=== PATIENT | male | born 1990 | race Two or more races ===

== ENCOUNTER 2016-05-11 19:31 | Emergency (ER) | payer OTHER ==
[~2016-05-11] VITALS: Ht 190.5 cm; Wt 77.1 kg
[2016-05-11 19:53] VITALS: BP 151/87
[2016-05-11] MEDS ORDERED: LORazepam Inj 2mg/ml 1ml IM ONE (20:00)
--- NOTE | 2016-05-11 20:03 | Emergency Room Report ---
History of Present Illness General Chief Complaint: Substance Abuse Source: Patient Present Illness HPI Patient reports smoking marijuana approximately 6:30 this evening Soon after the patient began having symptoms of palpitation Sensation of doom tightness in the neck Neuropathy of the hands and fingers Denies any chest pain denies any back or flank pain Denies any shortness of breath Patient denies any oral intake reports smoking the marijuana Allergies: Coded Allergies: AMOXICILLIN (Verified Allergy, Unknown, 05/11/16) CLAVULANIC ACID (Verified Allergy, Unknown, 05/11/16) Patient History Past Medical History: see triage record Pertinent Family History: none Reviewed Nursing Documentation: PMH: Agreed, PSxH: Agreed Nursing Documentation-PMH Hx Hypertension: Yes Review of Systems All Other Systems: negative except mentioned in HPI Physical Exam Vital Signs Date Time Temp Pulse Resp B/P Pulse Ox O2 Delivery O2 Flow Rate FiO2 05/11/16 19:48 97.5 114 22 151/87 100 Room Air Sp02 EP Interpretation: reviewed, normal General Appearance: mild distress - Appears anxious Head: normocephalic, atraumatic Eyes: bilateral eye EOMI, bilateral eye PERRL ENT: hearing grossly normal, normal pharynx, TMs + canals normal, uvula midline Neck: full range of motion, supple, no meningismus, no bony tend Respiratory: lungs clear, normal breath sounds, no rhonchi, no respiratory distress, no retraction, no accessory muscle use Cardiovascular #1: normal peripheral pulses, regular rate, rhythm, no edema, no gallop, no JVD, no murmur Gastrointestinal: normal bowel sounds, non tender, soft, no mass, no organomegaly, non-distended, no guarding, no hernia, no pulsatile mass, no rebound Genitourinary: no CVA tenderness Musculoskeletal: normal inspection Neurologic: oriented x3, responsive, brokerage coordinator III-XII nml as tested, motor strength/ tone normal, sensory intact Skin: normal color, no rash, warm/dry, palpation normal Lymphatic: normal inspection, no adenopathy Medical Decision Making Diagnostic Impression: Primary Impression: Marijuana use ER Course Patient appears to have a reaction to marijuana use Was provided with Ativan upon arrival after observation patient continues to be significantly better Patient remains hemodynamically stable Repeat evaluation is also improved and the patient stable for close outpatient followup Given the patient's exam and findings I did not feel that x-ray imaging or EKG was required Last Vital Signs Date Time Temp Pulse Resp B/P Pulse Ox O2 Delivery O2 Flow Rate FiO2 05/11/16 19:48 97.5 114 22 151/87 100 Room Air Status: improved Disposition: HOME, SELF-CARE Condition: Improved Additional Instructions: Patient is provided with the discharge instructions notified to follow up with primary doctor in the next 2-3 days otherwise return to the er with any worsening symptoms. Please note that this report is being documented using [employer] technology. This can lead to erroneous entry secondary to incorrect interpretation by the dictating instrument. MITCH SEYMOUR D.O. May 11, 2016 20:03
[2016-05-11 20:41] VITALS: BP 151/87
== END 2016-05-11 20:45 | disposition home or self-care (01) ==
LOC: EMR 20:17
DX: F12.90 Cannabis use, unspecified, uncomplicated (principal); I10 Essential (primary) hypertension; Z88.1 Allergy status to other antibiotic agents
CPT/HCPCS: 96372